=== PATIENT | male | born 1985 | race Caucasian/White ===

== ENCOUNTER 2018-10-04 19:35 | Emergency (ER) | payer OTHER, SELFPAY ==
--- NOTE | 2018-10-04 22:08 | ER ---
Nurse's Notes [facility] Name: Reynaldo Magaña Age: 33 yrs Sex: Male : 1985 Arrival Date: 10/04/2018 Time: 19:39 Bed 28 Private MD: Diagnosis: Sprain of ankle Presentation: 10/04 19:41 Presenting complaint: Patient states: Right leg pain after right lower leg became aj trapped in a fence while patient was trying to jump it last night. Care prior to arrival: None. 19:41 Method Of Arrival: Ambulatory aj 19:41 Acuity: ERICK 4 aj 20:00 Risk Assessment: Do you want to hurt yourself or someone else? Patient reports no ca1 desire to harm self or others. 20:00 Transition of care: patient was not received from another setting of care. Onset of ca1 symptoms. Initial Sepsis Screen: Does the patient meet any 2 criteria? No. Patient's initial sepsis screen is negative. Does the patient have a suspected source of infection? No. Patient's initial sepsis screen is negative. Triage Assessment: 19:42 General: Appears in no apparent distress. comfortable, Behavior is calm, cooperative, aj appropriate for age. Neuro: Level of Consciousness is awake, alert, obeys commands, Oriented to person, place, time, situation, Appropriate for age. Musculoskeletal: Reports pain in right trujillo and anterior aspect of right ankle. 20:00 Injury Description: no swelling, deformity or wound noted. ca1 Historical: - Allergies: 19:42 No Known Allergies; aj - Immunization history:: Adult Immunizations not up to date, Last tetanus immunization: up to date. - Social history:: Smoking status: Patient uses tobacco products, smokes two packs cigarettes per day. - Ebola Screening: : Patient negative for fever greater than or equal to 101.5 degrees Fahrenheit, and additional compatible Ebola Virus Disease symptoms Patient denies exposure to infectious person Patient denies travel to an Ebola-affected area in the 21 days before illness onset. Screenin:55 Abuse screen: Denies threats or abuse. Denies injuries from another. Nutritional ca1 screening: No deficits noted. Tuberculosis screening: No symptoms or risk factors identified. Fall Risk None identified. Assessment: 19:55 General: Appears in no apparent distress. comfortable, Behavior is calm, cooperative, ca1 appropriate for age. Pain: Complains of pain in right foot and anterior aspect of right ankle Pain currently is 6 out of 10 on a pain scale. Quality of pain is described as shooting, Pain began 1 day ago. Neuro: Level of Consciousness is awake, alert, obeys commands, Oriented to person, place, time, situation. Cardiovascular: Heart tones S1 S2 present Capillary refill < 3 seconds Patient's skin is warm and dry. Respiratory: Airway is patent Respiratory effort is even, unlabored, Respiratory pattern is regular, symmetrical, Breath sounds are clear bilaterally. Derm: Skin is intact, is healthy with good turgor, Skin is pink, warm \T\ dry. Musculoskeletal: Circulation, motion, and sensation intact. Capillary refill < 3 seconds, Range of motion: intact in all extremities. 20:46 Reassessment: Patient appears in no apparent distress at this time. Patient and/or ca1 family updated on plan of care and expected duration. Pain level reassessed. Patient is alert, oriented x 3, equal unlabored respirations, skin warm/dry/pink. 21:50 Reassessment: Patient appears in no apparent distress at this time. Patient is alert, ca1 oriented x 3, equal unlabored respirations, skin warm/dry/pink. Vital Signs: 19:42 BP 129 / 69; Pulse 102; Resp 19; Temp 98.9; Pulse Ox 97% on R/A; Weight 59.87 kg; aj Height 5 ft. 9 in. (175.26 cm); 20:45 BP 116 / 67; Pulse 82; Resp 16 S; Pulse Ox 95% on R/A; ca1 21:50 BP 107 / 79; Pulse 91; Resp 17 S; Pulse Ox 96% on R/A; ca1 19:42 Body Mass Index 19.49 (59.87 kg, 175.26 cm) ED Course: 19:39 Patient arrived in ED. es 19:42 Triage completed. aj 19:42 Arm band placed on left wrist. Patient placed in an exam room. aj 19:45 Minnie Dobson, THERESE is Primary Nurse. ca1 19:50 Abundio Eduardo PA is PHCP[facility] 19:50 Jose Wu MD is Attending Physician. [facility] 19:55 Patient has correct armband on for positive identification. Bed in low position. Call ca1 light in reach. Side rails up X 1. Pulse ox on. NIBP on. 19:55 No provider procedures requiring assistance completed. ca1 20:17 Tib Fib Right XRAY In Process Unspecified. EDMS 22:00 Patient did not have IV access during this emergency room visit. Ravinder wrap to right foot.ca1 Administered Medications: No medications were administered Outcome: 22:07 Discharge ordered by . ruben 22:24 Discharged to home ambulatory, with significant other. ca1 22:24 Condition: stable 22:24 Discharge instructions given to patient, Instructed on discharge instructions, follow up and referral plans. Demonstrated understanding of instructions, follow-up care. 22:24 Patient left the ED. ca1 Signatures: Dispatcher [employer] Eneida Clinton, RN RN Abundio Worthington PA PA jmm Salyer, Edna es Acob, Cheryl, RN RN ca1
--- NOTE | 2018-10-04 22:08 | EDPHYS ---
Physician Documentation [facility] Name: Reynaldo Magaña Age: 33 yrs Sex: Male : 1985 Arrival Date: 10/04/2018 Time: 19:39 Bed 28 Private MD: ED Physician Jose Wu Historical: - Allergies: 10/04 19:42 No Known Allergies; aj - Immunization history:: Adult Immunizations not up to date, Last tetanus immunization: up to date. - Social history:: Smoking status: Patient uses tobacco products, smokes two packs cigarettes per day. - Ebola Screening: : Patient negative for fever greater than or equal to 101.5 degrees Fahrenheit, and additional compatible Ebola Virus Disease symptoms Patient denies exposure to infectious person Patient denies travel to an Ebola-affected area in the 21 days before illness onset. Vital Signs: 19:42 BP 129 / 69; Pulse 102; Resp 19; Temp 98.9; Pulse Ox 97% on R/A; Weight 59.87 kg; aj Height 5 ft. 9 in. (175.26 cm); 20:45 BP 116 / 67; Pulse 82; Resp 16 S; Pulse Ox 95% on R/A; ca1 21:50 BP 107 / 79; Pulse 91; Resp 17 S; Pulse Ox 96% on R/A; ca1 19:42 Body Mass Index 19.49 (59.87 kg, 175.26 cm) aj MDM: 19:50 Patient medically screened. isaac 22:06 Data reviewed: vital signs, nurses notes. Counseling: I had a detailed discussion with ruben the patient and/or guardian regarding: the historical points, exam findings, and any diagnostic results supporting the discharge/admit diagnosis, radiology results, the need for outpatient follow up, to return to the emergency department if symptoms worsen or persist or if there are any questions or concerns that arise at home. 10/04 19:55 Order name: Tib Fib Right XRAY isaac 10/04 22:05 Order name: Ravinder wrap-joint; Complete Time: 22:15 ruben Administered Medications: No medications were administered Disposition: 10/05 08:24 Co-signature as Attending Physician, Jose Wu MD I agree with the assessment and frida plan of care. Disposition: 10/04/18 22:07 Discharged to Home. Impression: Sprain of ankle. - Condition is Stable. - Discharge Instructions: Ankle Sprain. - Medication Reconciliation Form, Thank You Letter, Antibiotic Education, Prescription Opioid Use, Work release form form. - Follow up: Private Physician; When: 2 - 3 days; Reason: Recheck today's complaints, Continuance of care, Re-evaluation by your physician. Signatures: Dispatcher [employer] Eneida Clinton RN RN aj Anderson, Corey, MD MD cha Mickail, Joel, PA PA jmm Acob, Cheryl, RN RN ca1 Corrections: (The following items were deleted from the chart) 10/04 22:24 22:07 10/04/2018 22:07 Discharged to Home. Impression: Sprain of ankle. Condition is ca1 Stable. Forms are Medication Reconciliation Form, Thank You Letter, Antibiotic Education, Prescription Opioid Use. Follow up: Private Physician; When: 2 - 3 days; Reason: Recheck today's complaints, Continuance of care, Re-evaluation by your physician. ruben
--- NOTE | 2018-10-05 10:56 | RAD REPORT ---
EXAM DESCRIPTION: RAD - Tib Fib Right - 10/04/2018 8:18 pm CLINICAL HISTORY: 33-year-old male with right leg pain after right lower leg became trapped in a fen ce TECHNIQUE: Two x-ray views of the right tibia fibula were performed on 10/04/2018 at 7:35 PM. COMPARISON: None FINDINGS: There are remote postsurgical changes of the tibia and distal fibula consistent with open reduction and internal fixation. An intramedullary homa extends along the course of the tibia and a si de plate and screws stabilize an old healed fracture of the distal fibula. Additionally, cortical scr ews extend through the medial malleolus. There is no evidence of acute fracture or dislocation. No fo cyndi lytic or sclerotic bone lesions are identified. The ankle joint and knee joint are intact. Bone mineralization is normal. No focal soft tissue abnormalities are identified. There is no evidence of subcutaneous emphysema or radiopaque foreign body. IMPRESSION: 1. No evidence of acute osseous injury involving the right tibia or fibula. 2. Remote postsurgical changes of the tibia and distal fibula as described above. Electronically signed by: Lauren Bashir DO 10/04/2018 9:59 PM CDT Due to temporary technical issues with the PACS/Fluency reporting system, reports are being signed by the in house radiologist as a courtesy to ensure prompt reporting. The interpreting radiologist is f ully responsible for the content of the report.
== END 2018-10-04 22:24 | disposition home or self-care (01) ==
LOC: ER 19:35
DX: S93.401A Sprain of unspecified ligament of right ankle, initial encounter (principal); F17.210 Nicotine dependence, cigarettes, uncomplicated
CPT/HCPCS: 99283

== ENCOUNTER 2019-01-21 14:17 | Emergency (ER) | payer SELFPAY ==
--- NOTE | 2019-01-21 16:24 | ER ---
Nurse's Notes [facility] Name: Reynaldo Magaña Jr Age: 33 yrs Sex: Male : 1985 Arrival Date: 01/21/2019 Time: 14:27 Bed 11 Private MD: Diagnosis: Pain in right ankle and joints of right foot Presentation: 01/21 14:50 Presenting complaint: Patient states: "We're building this RV and I had to step up to [facility] redo the roof, I was standing on the handle of the step ladder, so I fell and I hit my head and leg, so I don't know if I had gangrene or something" Reports that the injury occurred yesterday. Denies LOC, vomiting. Reports pain to right ankle. Transition of care: patient was not received from another setting of care. Onset of symptoms was January 2019. Risk Assessment: Do you want to hurt yourself or someone else? Patient reports no desire to harm self or others. Initial Sepsis Screen: Does the patient meet any 2 criteria? No. Patient's initial sepsis screen is negative. Does the patient have a suspected source of infection? No. Patient's initial sepsis screen is negative. Care prior to arrival: None. 14:50 Method Of Arrival: Ambulatory [facility] 14:50 Acuity: ERICK 4 aj1 Triage Assessment: 14:52 General: Appears in no apparent distress. comfortable, Behavior is calm, cooperative, aj1 appropriate for age. Pain: Complains of pain in right ankle Pain currently is 4 out of 10 on a pain scale. Neuro: Level of Consciousness is awake, alert, obeys commands. Cardiovascular: Patient's skin is warm and dry. Respiratory: Airway is patent Respiratory effort is even, unlabored, Respiratory pattern is regular, symmetrical. Musculoskeletal: Range of motion: limited in right ankle. Historical: - Allergies: 14:52 PEPPERMINT; aj1 - Home Meds: 14:52 None [Active]; aj1 - PMHx: 14:52 Asthma; Seizures; aj1 - Immunization history:: Flu vaccine is up to date. - Social history:: Smoking status: Patient uses tobacco products, smokes two packs cigarettes per day. Patient uses street drugs, marijuana. - Ebola Screening: : Patient denies travel to an Ebola-affected area in the 21 days before illness onset. Screenin:44 Abuse screen: Denies threats or abuse. Nutritional screening: No deficits noted. hb Tuberculosis screening: No symptoms or risk factors identified. Fall Risk None identified. Assessment: 16:43 General: Appears in no apparent distress. Behavior is calm, cooperative. Pain: hb Complains of pain in right ankle. Neuro: Level of Consciousness is awake, alert, obeys commands, Oriented to person, place, time, situation. Cardiovascular: Capillary refill < 3 seconds is brisk in bilateral toes Patient's skin is warm and dry. Respiratory: Airway is patent Respiratory effort is even, unlabored. GI: No signs and/or symptoms were reported involving the gastrointestinal system. : No signs and/or symptoms were reported regarding the genitourinary system. Musculoskeletal: Circulation, motion, and sensation intact. Capillary refill Range of motion: intact in all extremities. Vital Signs: 14:52 BP 101 / 64; Pulse 75; Resp 18; Temp 97.8; Pulse Ox 97% on R/A; Weight 59.87 kg (R); aj1 Height 5 ft. 9 in. (175.26 cm) (R); Pain 4/10; 14:52 Body Mass Index 19.49 (59.87 kg, 175.26 cm) aj1 ED Course: 14:27 Patient arrived in ED. as 14:52 Triage completed. aj1 14:52 Arm band placed on Patient placed in waiting room, Patient notified of wait time. aj1 15:45 Ankle Right 3 View XRAY In Process Unspecified. EDRI 16:05 Gil Chicas PA is PHCP. [facility] 16:05 Michael Carlson MD is Attending Physician. jr8 16:39 Betty Juan RN is Primary Nurse. hb 16:44 Patient has correct armband on for positive identification. hb 16:44 No provider procedures requiring assistance completed. Patient did not have IV access hb during this emergency room visit. Administered Medications: No medications were administered Outcome: 16:24 Discharge ordered by . jr8 16:43 Patient left the ED. hb 16:44 Discharged to home ambulatory. hb 16:44 Condition: stable 16:44 Discharge instructions given to patient, Instructed on discharge instructions, follow up and referral plans. Demonstrated understanding of instructions, follow-up care. Signatures: Dispatcher [employer] Sherita Crabtree, RN RN aj1 Chayo Meeks Josh, PA PA jr8 Betty Juan, RN RN hb
--- NOTE | 2019-01-21 16:24 | EDPHYS ---
Physician Documentation [facility] Name: Reynaldo Magaña Jr Age: 33 yrs Sex: Male : 1985 Arrival Date: 01/21/2019 Time: 14:27 Bed 11 Private MD: ED Physician Michael Carlson HPI: 01/21 16:23 This 33 yrs old Male presents to ER via Ambulatory with complaints of Leg jr8 Pain. 16:23 The patient presents with pain, that is acute. The complaints affect the right ankle. jr8 Onset: The symptoms/episode began/occurred yesterday. 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 Historical: - Allergies: 14:52 PEPPERMINT; aj1 - Home Meds: 14:52 None [Active]; aj1 - PMHx: 14:52 Asthma; Seizures; aj1 - Immunization history:: Flu vaccine is up to date. - Social history:: Smoking status: Patient uses tobacco products, smokes two packs cigarettes per day. Patient uses street drugs, marijuana. - Ebola Screening: : Patient denies travel to an Ebola-affected area in the 21 days before illness onset. ROS: 16:23 Constitutional: Negative for fever, chills, and weight loss, Eyes: Negative for injury, jr8 pain, redness, and discharge, ENT: Negative for injury, pain, and discharge, Neck: Negative for injury, pain, and swelling, Cardiovascular: Negative for chest pain, palpitations, and edema, Respiratory: Negative for shortness of breath, cough, wheezing, and pleuritic chest pain, Abdomen/GI: Negative for abdominal pain, nausea, vomiting, diarrhea, and constipation, Neuro: Negative for headache, weakness, numbness, tingling, and seizure. 16:23 MS/extremity: Positive for pain, of the right ankle. Exam: 16:23 Constitutional: This is a well developed, well nourished patient who is awake, alert, jr8 and in no acute distress. Head/Face: Normocephalic, atraumatic. Eyes: Pupils equal round and reactive to light, extra-ocular motions intact. Lids and lashes normal. Conjunctiva and sclera are non-icteric and not injected. Cornea within normal limits. Periorbital areas with no swelling, redness, or edema. ENT: Nares patent. No nasal discharge, no septal abnormalities noted. Tympanic membranes are normal and external auditory canals are clear. Oropharynx with no redness, swelling, or masses, exudates, or evidence of obstruction, uvula midline. Mucous membranes moist. Neck: Trachea midline, no thyromegaly or masses palpated, and no cervical lymphadenopathy. Supple, full range of motion without nuchal rigidity, or vertebral point tenderness. No Meningismus. Chest/axilla: Normal chest wall appearance and motion. Nontender with no deformity. No lesions are appreciated. Cardiovascular: Regular rate and rhythm with a normal S1 and S2. No gallops, murmurs, or rubs. Normal PMI, no JVD. No pulse deficits. Respiratory: Lungs have equal breath sounds bilaterally, clear to auscultation and percussion. No rales, rhonchi or wheezes noted. No increased work of breathing, no retractions or nasal flaring. Abdomen/GI: Soft, non-tender, with normal bowel sounds. No distension or tympany. No guarding or rebound. No evidence of tenderness throughout. 16:23 Musculoskeletal/extremity: Extremities: noted in the right ankle: pain, There is no evidence of deformity, ecchymosis, erythema, laceration. Vital Signs: 14:52 BP 101 / 64; Pulse 75; Resp 18; Temp 97.8; Pulse Ox 97% on R/A; Weight 59.87 kg (R); aj1 Height 5 ft. 9 in. (175.26 cm) (R); Pain 4/10; 14:52 Body Mass Index 19.49 (59.87 kg, 175.26 cm) aj1 MDM: 16:05 Patient medically screened. jr8 16:23 Data reviewed: vital signs, nurses notes, radiologic studies, plain films. Data jr8 interpreted: Pulse oximetry: on room air is 97 %. Interpretation: normal. Counseling: I had a detailed discussion with the patient and/or guardian regarding: the historical points, exam findings, and any diagnostic results supporting the discharge/admit diagnosis, radiology results, the need for outpatient follow up, a orthopedic surgeon, to return to the emergency department if symptoms worsen or persist or if there are any questions or concerns that arise at home. 01/21 14:54 Order name: Ankle Right 3 View XRAY; Complete Time: 16:34 aj1 Administered Medications: No medications were administered Disposition: 17:32 Co-signature as Attending Physician, Michael Carlson MD. rn Disposition: 01/21/19 16:24 Discharged to Home. Impression: Pain in right ankle and joints of right foot. - Condition is Stable. - Discharge Instructions: Musculoskeletal Pain, Ankle Pain. - Work release form, Medication Reconciliation Form, Thank You Letter, Antibiotic Education, Prescription Opioid Use form. - Follow up: Private Physician; When: 1 week; Reason: If symptoms return, Recheck today's complaints, Continuance of care, Re-evaluation by your physician. - Problem is new. - Symptoms have improved. Signatures: Dispatcher [employer] EDSherita Mejía RN RN aj1 Michael Carlson MD MD rn Roszak, Josh, PA PA jr8 Betty Juan RN RN hb Corrections: (The following items were deleted from the chart) 16:43 16:24 01/21/2019 16:24 Discharged to Home. Impression: Pain in right ankle and joints hb of right foot. Condition is Stable. Forms are Medication Reconciliation Form, Thank You Letter, Antibiotic Education, Prescription Opioid Use. Follow up: Private Physician; When: 1 week; Reason: If symptoms return, Recheck today's complaints, Continuance of care, Re-evaluation by your physician. Problem is new. Symptoms have improved. jr8
--- NOTE | 2019-01-21 16:31 | RAD REPORT ---
EXAM DESCRIPTION: RAD - Ankle Right 3 View - 01/21/2019 3:45 pm CLINICAL HISTORY: Fall, right ankle pain COMPARISON: None. FINDINGS: No fracture, dislocation or periosteal reaction. No joint effusion seen. No joint space na rrowing. No soft tissue abnormality. Hardware is present from prior tib-fib fracture repair. There is no fracture of the hardware. IMPRESSION: Negative right ankle for acute finding
== END 2019-01-21 16:43 | disposition home or self-care (01) ==
LOC: ER 14:17
DX: M25.571 Pain in right ankle and joints of right foot (principal); F17.210 Nicotine dependence, cigarettes, uncomplicated
CPT/HCPCS: 99283

== ENCOUNTER 2020-09-01 21:01 | Emergency (ER) | payer SELFPAY ==
--- OUTSIDE RECORDS SUMMARY | 2020-09-01 21:04 | XMS REPORT | Continuity of Care Document ---
:1985 Author Organization [facility] t Address [address] [place] [address] Dr[address] [place] [id number] Care Team Providers Name Role Phone Unavailable Unavailable Unavailable Problems This patient has no known problems. Allergies, Adverse Reactions, Alerts This patient has no known allergies or adverse reactions. Medications This patient has no known medications. Procedures This patient has no known procedures. Results This patient has no known results.
[2020-09-01 22:09] LABS: Absolute Lymphocytes (CBC) 2.7 K/uL (0.7-4.9); Basophils % 0.8 % (0-1.3); Hematocrit 47.5 % (39.6-49.0); Lymphocytes % 22.7 % (15.3-44.8); MPV 8.9 fL (7.6-11.3); RBC Red Blood Cell Count 5.05 M/uL (4.33-5.43)
[2020-09-01 22:17] LABS: Protime INR 1.09
[2020-09-01] MEDS ORDERED: NA CHLORIDE 0.9% 1,000 ML ONE (22:20)
[2020-09-01] MEDS ORDERED: ONDANSETRON 4 MG/2 ML VIAL ONE (22:20)
[2020-09-01 22:28] LABS: ALT/SGPT 22 U/L (12-78); AST/SGOT 26 U/L (15-37); Albumin 4.1 g/dL (3.4-5.0); Alkaline Phosphatase 87 U/L (45-117); BUN Blood Urea Nitrogen 19 mg/dL (7-18); Bicarbonate 36 mmol/L (21-32); Bilirubin Direct < 0.1 mg/dL (0-0.2); Bilirubin Total 0.3 mg/dL (0.2-1.0); Glucose Level 102 mg/dL (74-106); Potassium 3.7 mmol/L (3.5-5.1); Protein, Total 8.5 g/dL (6.4-8.2); Sodium Level 139 mmol/L (136-145); Troponin (Emerg Dept Use Only) < 0.02 ng/mL (0.0-0.045)
[2020-09-01 23:19] LABS: Urine Blood Negative (Negative); Urine Glucose Negative (Negative); Urine Protein Negative (Negative); Urine Specific Gravity 1.015 (1.005-1.030); Urine pH 7.5 (5.0-7.0)
[2020-09-01 23:42] LABS: Barbiturates NEGATIVE (NEGATIVE); Benzodiazepines NEGATIVE (NEGATIVE); Cocaine NEGATIVE (NEGATIVE); METHAMPHETAM NEGATIVE (NEGATIVE); Methadone NEGATIVE (NEGATIVE); Opiates NEGATIVE (NEGATIVE); Phencyclidine NEGATIVE (NEGATIVE); THC Cannibis POSITIVE (NEGATIVE)
--- NOTE | 2020-09-01 23:51 | EDPHYS ---
Physician Documentation [facility] Name: Reynaldo Magaña Jr Age: 34 yrs Sex: Male : 1985 Arrival Date: 09/01/2020 Time: 21:05 Bed 15 Private MD: ED Physician Tyrone Gallardo HPI: 09/01 21:45 This 34 yrs old Male presents to ER via Ambulatory with complaints of pkl Vomiting/Diarrhea, Chest Pain, Abdominal Pain. 21:58 The patient or guardian reports chest pain that is located primarily in the substernal pkl area, epigastric area. The pain does not radiate. Associated signs and symptoms: Pertinent positives: abdominal pain. The chest pain is described as dull. Patient admit to smoking unknown substance for the last 3 days. Historical: - Allergies: 09/02 00:08 PEPPERMINT; jm8 - Home Meds: 00:08 None [Active]; jm8 - Immunization history:: Adult Immunizations up to date. - Social history:: Smoking status: Reported history of juuling and/or vaping. Patient uses street drugs, Pt stated, "I smoked legal the last three days but I don't know what else was in the pipe.". ROS: 09/01 21:58 Eyes: Negative for injury, pain, redness, and discharge, ENT: Negative for injury, pkl pain, and discharge, Neck: Negative for injury, pain, and swelling. Cardiovascular: Positive for chest pain. Respiratory: Negative for cough, shortness of breath. Abdomen/GI: Positive for abdominal pain, nausea, vomiting, of the epigastric area. Back: Negative for acute changes. : Negative for urinary symptoms. MS/extremity: Negative for acute changes. Skin: Negative for rash. Neuro: Negative for altered mental status, loss of consciousness. Exam: 21:58 Head/Face: Normocephalic, atraumatic. Eyes: Pupils equal round and reactive to light, pkl extra-ocular motions intact. Lids and lashes normal. Conjunctiva and sclera are non-icteric and not injected. Cornea within normal limits. Periorbital areas with no swelling, redness, or edema. ENT: Nares patent. No nasal discharge, no septal abnormalities noted. Tympanic membranes are normal and external auditory canals are clear. Oropharynx with no redness, swelling, or masses, exudates, or evidence of obstruction, uvula midline. Mucous membranes moist. Neck: Trachea midline, no thyromegaly or masses palpated, and no cervical lymphadenopathy. Supple, full range of motion without nuchal rigidity, or vertebral point tenderness. No Meningismus. Chest/axilla: Normal chest wall appearance and motion. Nontender with no deformity. No lesions are appreciated. Cardiovascular: Regular rate and rhythm with a normal S1 and S2. No gallops, murmurs, or rubs. Normal PMI, no JVD. No pulse deficits. Respiratory: Lungs have equal breath sounds bilaterally, clear to auscultation and percussion. No rales, rhonchi or wheezes noted. No increased work of breathing, no retractions or nasal flaring. Abdomen/GI: Soft, non-tender, with normal bowel sounds. No distension or tympany. No guarding or rebound. No evidence of tenderness throughout. Back: No spinal tenderness. No costovertebral tenderness. Full range of motion. Skin: Warm, dry with normal turgor. Normal color with no rashes, no lesions, and no evidence of cellulitis. MS/ Extremity: Pulses equal, no cyanosis. Neurovascular intact. Full, normal range of motion. Neuro: Awake and alert, GCS 15, oriented to person, place, time, and situation. Cranial nerves II-XII grossly intact. Motor strength 5/5 in all extremities. Sensory grossly intact. Cerebellar exam normal. Normal gait. Vital Signs: 21:21 BP 95 / 76; Pulse 101; Resp 20; Temp 97.8(O); Pulse Ox 97% on R/A; Weight 56.7 kg (R); kg Height 5 ft. 9 in. (175.26 cm); Pain 0/10; 23:34 BP 109 / 58; Pulse 87; Resp 16; Pulse Ox 97% on R/A; jm8 21:21 Body Mass Index 18.46 (56.70 kg, 175.26 cm) kg MDM: 21:11 Patient medically screened. pkl 23:47 Data reviewed: vital signs, nurses notes, lab test result(s), EKG, radiologic studies, pkl plain films. ED course: Discussed lab, EKG and X' rays results with patient. Advised to follow up with PCP in 2 to 3 days. Patient understood instructions. 09/01 21:48 Order name: Acetaminophen; Complete Time: 23:03 pkl 09/01 21:48 Order name: Basic Metabolic Panel; Complete Time: 23:03 pkl 09/01 21:48 Order name: CBC with Diff; Complete Time: 23:03 pkl 09/01 21:48 Order name: ETOH Level; Complete Time: 23:03 pkl 09/01 21:48 Order name: Hepatic Function; Complete Time: 23:03 pkl 09/01 21:48 Order name: PT-INR; Complete Time: 23:03 pkl 09/01 21:48 Order name: Ptt, Activated; Complete Time: 23:03 pkl 09/01 21:48 Order name: Salicylate; Complete Time: 23:35 pkl 09/01 21:48 Order name: Urine Drug Screen; Complete Time: 23:44 pkl 09/01 21:48 Order name: XRAY Abdomen Acute Series pkl 09/01 21:48 Order name: Troponin (emerg Dept Use Only); Complete Time: 23:03 pkl 09/01 23:18 Order name: Urine Dipstick-Ancillary; Complete Time: 23:35 EDMS 09/01 21:48 Order name: EKG; Complete Time: 21:49 pkl 09/01 21:48 Order name: EKG - Nurse/Tech; Complete Time: 21:52 pkl 09/01 21:48 Order name: IV Saline Lock; Complete Time: 21:52 pkl 09/01 21:48 Order name: Labs collected and sent; Complete Time: 21:52 pkl 09/01 21:48 Order name: Suicide Screening ([place]); Complete Time: 21:52 pkl 09/01 21:48 Order name: Urine Dipstick-Ancillary (obtain specimen); Complete Time: 23:34 pkl Administered Medications: 22:13 Drug: NS 0.9% 1000 ml Route: IV; Rate: 1000 ml; Site: left antecubital; imlton 23:20 Follow up: IV Status: Completed infusion isaac8 22:13 Drug: Zofran (Ondansetron) 4 mg Route: IVP; Site: left antecubital; isaac8 09/02 00:09 Follow up: Response: No adverse reaction milton Disposition: 09/01/20 23:50 Discharged to Home. Impression: Chest pain. Epigasyric pain. Substance abuse. - Condition is Stable. - Medication Reconciliation Form, Thank You Letter, Antibiotic Education, Prescription Opioid Use form. - Follow up: Private Physician; When: 2 - 3 days; Reason: Re-evaluation by your physician. - Problem is new. - Symptoms have improved. Signatures: Dispatcher [employer] EDMS Tyrone Gallardo MD MD pkl Pepito Gómez RN RN jm8 Archana Mathis kg Corrections: (The following items were deleted from the chart) 00:10 09/01 23:50 09/01/2020 23:50 Discharged to Home. Impression: Chest pain. Epigasyric jm8 pain. Substance abuse. Condition is Stable. Forms are Medication Reconciliation Form, Thank You Letter, Antibiotic Education, Prescription Opioid Use. Follow up: Private Physician; When: 2 - 3 days; Reason: Re-evaluation by your physician. Problem is new. Symptoms have improved. pkl
--- NOTE | 2020-09-01 23:51 | ER ---
Nurse's Notes [facility] Name: Reynaldo Magaña Jr Age: 34 yrs Sex: Male : 1985 Arrival Date: 09/01/2020 Time: 21:05 Bed 15 Private MD: Diagnosis: Chest pain. Epigasyric pain. Substance abuse Presentation: 09/01 21:21 Chief complaint: Patient states: Vomiting, diarrhea, abdominal pain, chest pain, kg anxiety. Pt states, "I've been smoking stuff in my pipe for the last three days but I'm not sure what it is. I've only slept maybe six hours in the last three days.". Coronavirus screen: Client denies travel out of the [place] in the last 14 days. Ebola Screen: Patient negative for fever greater than or equal to 101.5 degrees Fahrenheit, and additional compatible Ebola Virus Disease symptoms Patient denies exposure to infectious person. Patient denies travel to an Ebola-affected area in the 21 days before illness onset. Initial Sepsis Screen: Does the patient meet any 2 criteria? HR > 90 bpm. Does the patient have a suspected source of infection? No. Patient's initial sepsis screen is negative. Risk Assessment: Do you want to hurt yourself or someone else? Patient reports no desire to harm self or others. Onset of symptoms was September 01, 2020. 21:21 Method Of Arrival: Ambulatory kg 21:21 Acuity: ERICK 3 kg Historical: - Allergies: 09/02 00:08 PEPPERMINT; jm8 - Home Meds: 00:08 None [Active]; jm8 - Immunization history:: Adult Immunizations up to date. - Social history:: Smoking status: Reported history of juuling and/or vaping. Patient uses street drugs, Pt stated, "I smoked legal the last three days but I don't know what else was in the pipe.". Screenin/17 21:32 Abuse screen: Denies threats or abuse. Denies injuries from another. Nutritional kg screening: No deficits noted. Tuberculosis screening: No symptoms or risk factors identified. Fall Risk None identified. No fall in past 12 months (0 pts). No secondary diagnosis (0 pts). IV access (20 points). Ambulatory Aid- None/Bed Rest/Nurse Assist (0 pts). Gait- Impaired (20 pts.). Mental Status- Overestimates/Forgets Limitations (15 pts.). Assessment: 21:30 General: Appears distressed, Behavior is cooperative, appropriate for age, anxious, kg restless. Pain: Denies pain. Neuro: No deficits noted. Level of Consciousness is awake, alert, obeys commands, Oriented to person, place, time, situation, Poultry Farmer are equal bilaterally Moves all extremities. Gait is steady, Speech is normal. Cardiovascular: Heart tones S1 S2 Rhythm is regular. Respiratory: Airway is patent Breath sounds are clear bilaterally. GI: Abdomen is flat, Bowel sounds present X 4 quads. Abd is soft and non tender X 4 quads. Reports nausea, "it's like my body is trying to reject whatever is in it". : No deficits noted. EENT: No deficits noted. Derm: No deficits noted. Musculoskeletal: No deficits noted. 09/02 00:35 Reassessment: Phone and wallet found in room while cleaning. Handed off phone and 8 wallet to security at this time.. Vital Signs: 09/01 21:21 BP 95 / 76; Pulse 101; Resp 20; Temp 97.8(O); Pulse Ox 97% on R/A; Weight 56.7 kg (R); kg Height 5 ft. 9 in. (175.26 cm); Pain 0/10; 23:34 BP 109 / 58; Pulse 87; Resp 16; Pulse Ox 97% on R/A; jm8 21:21 Body Mass Index 18.46 (56.70 kg, 175.26 cm) kg ED Course: 21:05 Patient arrived in ED. cf2 21:11 Tyrone Gallardo MD is Attending Physician. pkl 21:15 Inserted saline lock: 20 gauge in left antecubital area, using aseptic technique. kg 21:17 EKG done, by ED staff, reviewed by Tyrone Gallardo MD. rr5 21:21 Archana Mathis is Primary Nurse. kg 21:29 Triage completed. kg 21:32 Arm band placed on left wrist. kg 22:19 XRAY Abdomen Acute Series In Process Unspecified. EDMS 09/02 00:08 No provider procedures requiring assistance completed. IV discontinued, intact, jm8 bleeding controlled. 00:09 Patient has correct armband on for positive identification. Bed in low position. Call jm8 light in reach. Side rails up X2. Adult w/ patient. Administered Medications: 09/01 22:13 Drug: NS 0.9% 1000 ml Route: IV; Rate: 1000 ml; Site: left antecubital; milton 23:20 Follow up: IV Status: Completed infusion 8 22:13 Drug: Zofran (Ondansetron) 4 mg Route: IVP; Site: left antecubital; milton 09/02 00:09 Follow up: Response: No adverse reaction milton Outcome: 09/01 23:50 Discharge ordered by . milton 09/02 00:08 Discharged to home ambulatory, with family. milton Condition: good Discharge instructions given to patient, family, Instructed on discharge instructions, follow up and referral plans. Demonstrated understanding of instructions, follow-up care. 00:10 Patient left the ED. isaac8 Signatures: Dispatcher [employer] EDMS Tyrone Gallardo MD MD pkl Roque, Raymond RN RN rr5 Fifi Osborn 2 Pepito Gómez RN RN jm8 Archana Mathis kg
[2020-09-02 00:51] VITALS: TEMP 97.8; O2SAT 97
[2020-09-02 00:52] VITALS: BP 109/58
--- NOTE | 2020-09-02 08:10 | RAD REPORT ---
EXAM DESCRIPTION: RAD - Abdomen Acute Series - 09/01/2020 10:19 pm CLINICAL HISTORY: chest pain;Abd pain COMPARISON: CHEST SINGLE VIEW dated 12/02/2007 FINDINGS: Lungs are clear. Heart size and pulmonary vasculature are normal. No pleural effusion, pne umothorax or other acute cardiopulmonary process seen. Bowel gas pattern is nonspecific. No bowel obstruction, free air or other acute findings. No suspicio us calcifications. No other suspicious for significant findings. IMPRESSION: Negative acute abdomen series.
--- NOTE | 2020-09-02 11:40 | EKG ---
Test Date: 2020-09-01 Test Time: 21:15:05 Ux Developer Designer: RR MEASUREMENT RESULTS: Intervals: Rate: 99 [place]: 120 QRSD: 76 QT: 366 QTc: 469 [place]: P: 33 [place]: 120 QRS: 84 T: 79 INTERPRETIVE STATEMENTS: Normal sinus rhythm Normal ECG No previous ECG available for comparison Electronically Signed On 09-02-20 11:39:24 CDT by Amrik Khan
== END 2020-09-02 00:10 | disposition home or self-care (01) ==
LOC: ER 21:01
DX: R10.13 Epigastric pain (principal); F19.10 Other psychoactive substance abuse, uncomplicated; Z91.048 Other nonmedicinal substance allergy status
CPT/HCPCS: 36415; 74022; 80048; 80076; 80307; 80320; 80329; 81003; 84484; 85025; 85610; 85730; 93005; 96361; 96374; 99284; J2405; J7030

== ENCOUNTER 2020-09-19 14:38 | Emergency (ER) | payer SELFPAY ==
--- OUTSIDE RECORDS SUMMARY | 2020-09-19 14:40 | XMS REPORT | Continuity of Care Document ---
:1985 Author Organization [facility] t Address [address] [place] [address] Dr. Salas [address] [place] [id number] Care Team Providers Name Role Phone Unavailable Unavailable Unavailable Problems This patient has no known problems. Allergies, Adverse Reactions, Alerts This patient has no known allergies or adverse reactions. Medications This patient has no known medications. Procedures This patient has no known procedures. Results This patient has no known results.
--- NOTE | 2020-09-19 15:58 | EDPHYS ---
Physician Documentation [facility] Name: Reynaldo Magaña Jr Age: 35 yrs Sex: Male : 1985 Arrival Date: 09/19/2020 Time: 14:41 Bed 4 Private MD: ED Physician Tian George HPI: 09/19 16:01 This 35 yrs old Male presents to ER via Ambulatory with complaints of Cyst. jr8 16:01 Description: The affected area is small, well demarcated, draining, erythematous. jr8 Onset: The symptoms/episode began/occurred gradually, 2 week(s) ago. Possible cause(s): unknown. Associated signs and symptoms: The patient has no apparent associated signs or symptoms. Modifying factors: the symptoms are alleviated by nothing, the symptoms are aggravated by pressure, squeezing the lesion and expressing the contents, touching. Severity of symptoms: At their worst the symptoms were mild, in the emergency department the symptoms are unchanged. The patient has not experienced similar symptoms in the past. The patient has not recently seen a physician. Patient stated that he has had a cyst like structure under his left arm for several years. Within the past few days started to become red and tender. Now with purulent drainage . Historical: - Allergies: 14:48 PEPPERMINT; jd3 - Home Meds: 14:48 None [Active]; jd3 - PMHx: 14:48 Seizures; jd3 - PSHx: 14:48 None; jd3 - Immunization history:: Adult Immunizations up to date. - Social history:: Smoking status: Patient reports the use of cigarette tobacco products. ROS: 16:01 Eyes: Negative for injury, pain, redness, and discharge, ENT: Negative for injury, jr8 pain, and discharge, Neck: Negative for injury, pain, and swelling, Cardiovascular: Negative for chest pain, palpitations, and edema, Respiratory: Negative for shortness of breath, cough, wheezing, and pleuritic chest pain, Abdomen/GI: Negative for abdominal pain, nausea, vomiting, diarrhea, and constipation, Back: Negative for injury and pain, MS/Extremity: Negative for injury and deformity, Neuro: Negative for headache, weakness, numbness, tingling, and seizure. 16:01 Skin: Positive for erythema, swelling, of the left axilla. Exam: 16:01 Constitutional: This is a well developed, well nourished patient who is awake, alert, jr8 and in no acute distress. Cardiovascular: Regular rate and rhythm with a normal S1 and S2. No gallops, murmurs, or rubs. Normal PMI, no JVD. No pulse deficits. Respiratory: Lungs have equal breath sounds bilaterally, clear to auscultation and percussion. No rales, rhonchi or wheezes noted. No increased work of breathing, no retractions or nasal flaring. MS/ Extremity: Pulses equal, no cyanosis. Neurovascular intact. Full, normal range of motion. Neuro: Awake and alert, GCS 15, oriented to person, place, time, and situation. Cranial nerves II-XII grossly intact. Motor strength 5/5 in all extremities. Sensory grossly intact. Cerebellar exam normal. Normal gait. 16:01 Skin: Patient has small erythematous region to left anterior axilla with thick purulent drainage noted from area . Vital Signs: 14:48 BP 105 / 89; Pulse 88; Resp 17 S; Temp 97.4(TE); Pulse Ox 98% on R/A; Weight 59.87 kg jd3 (R); Height 5 ft. 9 in. (175.26 cm) (R); Pain 9/10; 16:08 BP 117 / 79; Pulse 78; Resp 17; Temp 97.5; Pulse Ox 98% ; bp 14:48 Body Mass Index 19.49 (59.87 kg, 175.26 cm) jd3 MDM: 15:45 Patient medically screened. [facility] 16:01 Data reviewed: vital signs, nurses notes, and as a result, I will discharge patient. [facility] Data interpreted: Pulse oximetry: on room air is 98 %. Interpretation: normal. Counseling: I had a detailed discussion with the patient and/or guardian regarding: the historical points, exam findings, and any diagnostic results supporting the discharge/admit diagnosis, the need for outpatient follow up, a general surgeon, to return to the emergency department if symptoms worsen or persist or if there are any questions or concerns that arise at home. Administered Medications: No medications were administered Disposition: 18:45 Co-signature as Attending Physician, Tian George MD I agree with the assessment and kdr plan of care. Disposition: 09/19/20 15:58 Discharged to Home. Impression: Hidradenitis suppurativa. - Condition is Stable. - Discharge Instructions: Hidradenitis Suppurativa. - Prescriptions for Bactroban 2 % Topical Ointment - Apply to affected area 1 application by TOPICAL route every 12 hours; 30 gram. Bactrim DS 800- 160 mg Oral Tablet - take 1 tablet by ORAL route every 12 hours for 7 days; 14 tablet. - Medication Reconciliation Form, Thank You Letter, Antibiotic Education, Prescription Opioid Use, Work release form form. - Follow up: Gibson Castillo MD; When: 1 week; Reason: Recheck today's complaints, Continuance of care, Re-evaluation by your physician. - Problem is new. - Symptoms have improved. Signatures: Tian George MD MD [facility] Gil Chicas PA PA jr8 Arya Swanson RN RN jd3 Jp Sandoval RN RN bp Corrections: (The following items were deleted from the chart) 16:10 15:58 09/19/2020 15:58 Discharged to Home. Impression: Hidradenitis suppurativa. bp Condition is Stable. Forms are Medication Reconciliation Form, Thank You Letter, Antibiotic Education, Prescription Opioid Use. Follow up: Gibson Castillo; When: 1 week; Reason: Recheck today's complaints, Continuance of care, Re-evaluation by your physician. Problem is new. Symptoms have improved. jr8
--- NOTE | 2020-09-19 15:58 | ER ---
Nurse's Notes [facility] Name: Reynaldo Magaña Jr Age: 35 yrs Sex: Male : 1985 Arrival Date: 09/19/2020 Time: 14:41 Bed 4 Private MD: Diagnosis: Hidradenitis suppurativa Presentation: 09/19 14:45 Chief complaint: Patient states: "I had cyst in my left arm that feel like it may have jd3 popped. my primary care told me to make sure it was cancer because apparently there is one that can spread down to there lungs. it had drainage for 3 days now.". Coronavirus screen: At this time, the client does not indicate any symptoms associated with coronavirus-19. Ebola Screen: Patient negative for fever greater than or equal to 101.5 degrees Fahrenheit, and additional compatible Ebola Virus Disease symptoms. Initial Sepsis Screen: Does the patient meet any 2 criteria? No. Patient's initial sepsis screen is negative. Does the patient have a suspected source of infection? No. Patient's initial sepsis screen is negative. Risk Assessment: Do you want to hurt yourself or someone else? Patient reports no desire to harm self or others. Onset of symptoms was September 19, 2020. 14:45 Method Of Arrival: Ambulatory j 14:45 Acuity: ERICK 3 jd3 Triage Assessment: 15:32 General: Appears in no apparent distress. uncomfortable, Behavior is cooperative, bp appropriate for age, agitated. Pain: Complains of pain in left arm. EENT: No deficits noted. Neuro: No deficits noted. Cardiovascular: No deficits noted. Respiratory: No deficits noted. GI: No signs and/or symptoms were reported involving the gastrointestinal system. : No signs and/or symptoms were reported regarding the genitourinary system. Derm: Abscess located on left arm is quarter sized. Musculoskeletal: No deficits noted. Historical: - Allergies: 14:48 PEPPERMINT; jd3 - Home Meds: 14:48 None [Active]; jd3 - PMHx: 14:48 Seizures; jd3 - PSHx: 14:48 None; jd3 - Immunization history:: Adult Immunizations up to date. - Social history:: Smoking status: Patient reports the use of cigarette tobacco products. Screenin:38 Abuse screen: Denies threats or abuse. Denies injuries from another. Nutritional bp screening: No deficits noted. Tuberculosis screening: No symptoms or risk factors identified. Fall Risk None identified. Assessment: 15:38 General: SEE TRIAGE NOTE. bp 16:08 Reassessment: PT D/C HOME AMBULATORY WITH FAMILY, DX WITH HIDRADENITIS SUPPURATIVA. bp Vital Signs: 14:48 BP 105 / 89; Pulse 88; Resp 17 S; Temp 97.4(TE); Pulse Ox 98% on R/A; Weight 59.87 kg jd3 (R); Height 5 ft. 9 in. (175.26 cm) (R); Pain 9/10; 16:08 BP 117 / 79; Pulse 78; Resp 17; Temp 97.5; Pulse Ox 98% ; bp 14:48 Body Mass Index 19.49 (59.87 kg, 175.26 cm) jd3 ED Course: 14:41 Patient arrived in ED. ds1 14:47 Triage completed. jd3 14:49 Arm band placed on. jd3 15:28 Jp Sandoval, RN is Primary Nurse. bp 15:38 Patient has correct armband on for positive identification. Placed in gown. Bed in low bp position. Call light in reach. Side rails up X2. 15:45 [facility]. jr8 15:45 Tian George MD is Attending Physician. jr8 15:54 Gibson Castillo MD is Referral Physician. jr8 16:08 No provider procedures requiring assistance completed. Patient did not have IV access bp during this emergency room visit. Administered Medications: No medications were administered Outcome: 15:58 Discharge ordered by . jr8 16:08 Discharged to home ambulatory, with family. bp 16:08 Condition: stable 16:08 Discharge instructions given to patient, Instructed on discharge instructions, follow up and referral plans. medication usage, wound care, Demonstrated understanding of instructions, follow-up care, medications, wound care, Prescriptions given X 2. 16:10 Patient left the ED. bp Signatures: Mónica Bryant ds1 Gil Chicas PA PA jr8 Arya Swanson RN RN jd3 Jp Sandoval, THERESE RN bp
[2020-09-19 17:13] VITALS: O2SAT 98
[2020-09-19 17:15] VITALS: BP 117/79; TEMP 97.5
== END 2020-09-19 16:10 | disposition home or self-care (01) ==
LOC: ER 14:38
DX: L73.2 Hidradenitis suppurativa (principal); F17.210 Nicotine dependence, cigarettes, uncomplicated
CPT/HCPCS: 99282

== ENCOUNTER 2021-05-11 18:22 | Emergency (ER) | payer SELFPAY ==
--- OUTSIDE RECORDS SUMMARY | 2021-05-11 18:25 | XMS REPORT | Continuity of Care Document ---
:1985 Author Organization [facility] t Address [address] [place] [address] Care Team Providers Name Role Phone JOYCE MEDINA Attending Clinician Unavailable Rama HODGES Attending Clinician Unavailable MAYELA Attending Clinician Unavailable Problems This patient has no known problems. Allergies, Adverse Reactions, Alerts Allergy Allergy Status Severity Reaction(s) Onset Inactive Treating Comm ents Source Name Type Date Date Clinician CAT DRUG Active Other-Cmnt [facility]16 it[facility] of 00:00: [address] DOG DRUG Active Other-Cmnt 2015-0 [facility] 2-16 ity of 00:00: [address] Medications This patient has no known medications. Procedures This patient has no known procedures. Encounters Start End Encounter Admission Attending Care Care Encounter Source Date/Time Date/Time Type Type Clinicians Facility Department ID 2021-01-20 2021-01-21 Emergency E CAROL [facility] [id number] [facility] 20:38:00 02:00:00 EDGARDO 2020-07-09 2020-07-09 Emergency [facility] [id number] 13:11:00 15:33:00 2020-07-05 2020-07-05 Emergency X NICKI PEDRO ERT [id number] [facility] 06:26:00 06:26:00 FRNACOIS [facility] Results This patient has no known results.
[2021-05-11] MEDS ORDERED: TETANUS & DIPHTHERIA TOX,ADULT 0.5 ML VIAL ONE (18:45)
--- NOTE | 2021-05-11 19:39 | ER ---
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 I was not jd3 planning on coming, but my boss told me I had to come. right foot big toe.". Coronavirus screen: At this time, the client does not indicate any symptoms associated with coronavirus-19. Ebola Screen: No symptoms or risks identified at this time. Initial Sepsis Screen: Does the patient meet any 2 criteria? No. Patient's initial sepsis screen is negative. Does the patient have a suspected source of infection? No. Patient's initial sepsis screen is negative. Risk Assessment: Do you want to hurt yourself or someone else? Patient reports no desire to harm self or others. Onset of symptoms was May 11, 2021. 18:38 Method Of Arrival: Ambulatory [facility] 18:38 Acuity: ERICK 4 jd3 Triage Assessment: 19:33 General: Appears in no apparent distress. comfortable, well groomed, well developed, jh5 well nourished, Behavior is calm, cooperative, appropriate for age. 19:34 Injury Description: stepped on a nail. jh5 Historical: - Allergies: 18:40 PEPPERMINT; jd3 - Home Meds: 18:40 quetiapine oral [Active]; jd3 - PMHx: 18:40 Schizophrenia; jd3 - PSHx: 18:40 None; jd3 - Immunization history:: Adult Immunizations up to date, Client reports receiving the 2nd dose of the Covid vaccine. - Social history:: Smoking status: Patient reports the use of cigarette tobacco products, smokes two packs cigarettes per day. Screenin:05 Abuse screen: Denies threats or abuse. Denies injuries from another. Nutritional tw5 screening: No deficits noted. Tuberculosis screening: No symptoms or risk factors identified. Fall Risk None identified. Assessment: 19:05 General: Reports " It was just a long day of work. I am just going to sleep until x-ray tw5 gets me". Pain: Denies pain. Musculoskeletal: Range of motion: intact in all extremities. Vital Signs: 18:40 BP 119 / 72; Pulse 103; Resp 18 S; Temp 97.6(TE); Pulse Ox 100% on R/A; Weight 62.14 kg jd3 (R); Height 5 ft. 9 in. (175.26 cm) (R); Pain 0/10; 18:40 Body Mass Index 20.23 (62.14 kg, 175.26 cm) j ED Course: 18:28 Patient arrived in ED. ds1 18:39 Triage completed. jd3 18:41 Arm band placed on. jd3 19:05 Patient has correct armband on for positive identification. Warm blanket given. tw5 19:33 Christine Candelaria, RN is Primary Nurse. jh5 19:34 No provider procedures requiring assistance completed. jh5 19:35 Gil Chicas PA is PHCP. jr8 19:35 Jose Wu MD is Attending Physician. jr8 Administered Medications: 18:47 Drug: Tetanus-Diphtheria Toxoid Adult 0.5 ml {Heel Seat Fitter: [employer]. Exp: jd3 09/05/2022. Lot #: [id number]. } Route: IM; Site: left deltoid; Outcome: 19:39 Discharge ordered by . jr8 19:52 Patient left the ED. jh5 Signatures: Mónica Bryant ds1 Gil Chicas PA PA jr8 Arya Swanson RN RN jfélix Jair Mulu 5 Christine Candelaria, THERESE RN jh5 Corrections: (The following items were deleted from the chart) 18:40 18:40 PMHx: Seizures; jd3 jd3
--- NOTE | 2021-05-11 19:39 | EDPHYS ---
Physician Documentation [facility] Name: Reynaldo Magaña Jr Age: 35 yrs Sex: Male : 1985 Arrival Date: 05/11/2021 Time: 18:28 Bed 9 Private MD: ED Physician Jose Wu HPI: 05/11 19:42 This 35 yrs old Male presents to ER via Ambulatory with complaints of Foot Injury. jr8 19:42 Associated signs and symptoms: The patient has no apparent associated signs or jr8 symptoms. Severity of symptoms: At their worst the symptoms were very mild, in the emergency department the symptoms have resolved. The patient has not experienced similar symptoms in the past. The patient has not recently seen a physician. Is a 35-year-old male that stepped on a nail 2 days ago. Stated that it barely went into his skin. Has been fine since then but that his boss required him to get a tetanus shot. Denies any pain or other symptoms at this time.. Historical: - Allergies: 18:40 PEPPERMINT; jd3 - Home Meds: 18:40 quetiapine oral [Active]; jd3 - PMHx: 18:40 Schizophrenia; jd3 - PSHx: 18:40 None; jd3 - Immunization history:: Adult Immunizations up to date, Client reports receiving the 2nd dose of the Covid vaccine. - Social history:: Smoking status: Patient reports the use of cigarette tobacco products, smokes two packs cigarettes per day. ROS: 19:42 Eyes: Negative for injury, pain, redness, and discharge, ENT: Negative for injury, jr8 pain, and discharge, Neck: Negative for injury, pain, and swelling, Cardiovascular: Negative for chest pain, palpitations, and edema, Respiratory: Negative for shortness of breath, cough, wheezing, and pleuritic chest pain, Abdomen/GI: Negative for abdominal pain, nausea, vomiting, diarrhea, and constipation, Back: Negative for injury and pain, MS/Extremity: Negative for injury and deformity, Skin: Negative for injury, rash, and discoloration, Neuro: Negative for headache, weakness, numbness, tingling, and seizure. Exam: 19:42 Constitutional: This is a well developed, well nourished patient who is awake, alert, jr8 and in no acute distress. Cardiovascular: Regular rate and rhythm with a normal S1 and S2. No gallops, murmurs, or rubs. Normal PMI, no JVD. No pulse deficits. Respiratory: Lungs have equal breath sounds bilaterally, clear to auscultation and percussion. No rales, rhonchi or wheezes noted. No increased work of breathing, no retractions or nasal flaring. Skin: Warm, dry with normal turgor. Normal color with no rashes, no lesions, and no evidence of cellulitis. Small petechial gianna to the volar surface of the right great toe at the metatarsophalangeal joint. MS/ Extremity: Pulses equal, no cyanosis. Neurovascular intact. Full, normal range of motion. Neuro: Awake and alert, GCS 15, oriented to person, place, time, and situation. Cranial nerves II-XII grossly intact. Motor strength 5/5 in all extremities. Sensory grossly intact. Vital Signs: 18:40 BP 119 / 72; Pulse 103; Resp 18 S; Temp 97.6(TE); Pulse Ox 100% on R/A; Weight 62.14 kg jd3 (R); Height 5 ft. 9 in. (175.26 cm) (R); Pain 0/10; 18:40 Body Mass Index 20.23 (62.14 kg, 175.26 cm) jd3 MDM: 19:36 Patient medically screened. [facility] 19:38 Data reviewed: vital signs, nurses notes, and as a result, I will discharge patient. 8 Data interpreted: Pulse oximetry: on room air is 100 %. Interpretation: normal. Counseling: I had a detailed discussion with the patient and/or guardian regarding: the historical points, exam findings, and any diagnostic results supporting the discharge/admit diagnosis, the need for outpatient follow up, a family practitioner, to return to the emergency department if symptoms worsen or persist or if there are any questions or concerns that arise at home. Administered Medications: 18:47 Drug: Tetanus-Diphtheria Toxoid Adult 0.5 ml {Dairy Tester: [employer]. Exp: jd3 09/05/2022. Lot #: [id number]. } Route: IM; Site: left deltoid; Disposition: 05/12 08:50 Co-signature as Attending Physician, Jose Wu MD I agree with the assessment and frida plan of care. Disposition Summary: 05/11/21 19:39 Discharge Ordered Location: Home jr8 Problem: new jr8 Symptoms: are unchanged jr8 Condition: Stable jr8 Diagnosis - Puncture wound without foreign body, right foot jr8 Followup: jr8 - With: Private Physician - When: As needed - Reason: Wound Recheck, Continuance of care, Re-evaluation by your physician Discharge Instructions: - Discharge Summary Sheet jr8 - Puncture Wound jr8 Forms: - Medication Reconciliation Form jr8 - Thank You Letter jr8 - Antibiotic Education jr8 - Prescription Opioid Use jr8 Signatures: Dispatcher [employer] EDMS Jose Wu MD MD cha Roszak, Josh, PA PA jr8 Arya Swanson RN RN jd3 Corrections: (The following items were deleted from the chart) 05/11 18:40 18:40 PMHx: Seizures; jd3 jd3 19:24 18:46 Foot Right 3 View+RAD.RAD.[email or web address] ordered. EDMS EDMS
[2021-05-12 02:00] VITALS: BP 119/72; TEMP 97.6; O2SAT 100
== END 2021-05-11 19:52 | disposition home or self-care (01) ==
LOC: ER 18:22
DX: S91.331A Puncture wound without foreign body, right foot, initial encounter (principal); W45.0XXA Nail entering through skin, initial encounter; F20.9 Schizophrenia, unspecified; F17.210 Nicotine dependence, cigarettes, uncomplicated; Z23 Encounter for immunization; Z91.018 Allergy to other foods
CPT/HCPCS: 90471; 90714; 99282